=== PATIENT | female | born 1970 ===

== ENCOUNTER 2018-07-20 10:36 | Emergency (ER) | payer OTHER ==
[~2018-07-20] VITALS: Ht 165.1 cm; Wt 78.5 kg
[2018-07-20] MEDS ORDERED: LOSARTAN-HCTZ1 EACH (10:51)
== END 2018-07-20 12:59 | disposition home or self-care (01) ==
LOC: ER 10:36
DX: M94.0 Chondrocostal junction syndrome [Tietze] (principal); R07.89 Other chest pain

== ENCOUNTER 2019-10-17 09:49 | Outpatient (CLI) | payer OTHER ==
[~2019-10-17 09:49] MED LIST: LOSARTAN-HCTZ1 EACH
== END 2019-10-17 09:52 | disposition home or self-care (01) ==
LOC: EKG 09:49
DX: I10 Essential (primary) hypertension (principal)

== ENCOUNTER 2020-10-11 11:30 | Inpatient (IN) | payer OTHER ==
[~2020-10-11] VITALS: Ht 165.1 cm; Wt 81.6 kg
[2020-10-18] MEDS ORDERED: LOSARTAN POTASS25 MG (11:00)
[2020-10-19] MEDS ORDERED: Tylenol #3 PO (09:17)
== END 2020-10-19 11:02 | disposition home or self-care (01) | DRG 743 ==
LOC: O/R 10-18 05:20 → OB/GYN 10-18 11:30
PROVIDERS: ADMIT Obstetrics & Gynecology; ATTEND Obstetrics & Gynecology
PROC: 0UB57ZZ Excision of Right Fallopian Tube, Via Natural or Artificial Opening (ICD-10-PCS; 2020-10-18)
PROC: 0TJB8ZZ Inspection of Bladder, Via Natural or Artificial Opening Endoscopic (ICD-10-PCS; 2020-10-18)
PROC: 0UT9FZZ Resection of Uterus, Via Natural or Artificial Opening With Percutaneous Endoscopic Assistance (ICD-10-PCS; principal; 2020-10-18 15:00)
DX: D25.0 Submucous leiomyoma of uterus (principal); N80.0 Endometriosis of uterus; N72 Inflammatory disease of cervix uteri; N81.11 Cystocele, midline; D25.1 Intramural leiomyoma of uterus; D25.2 Subserosal leiomyoma of uterus; N73.6 Female pelvic peritoneal adhesions (postinfective); N94.89 Other specified conditions associated with female genital organs and menstrual cycle; I10 Essential (primary) hypertension